=== PATIENT | male | born 1960 | race Caucasian/White ===

== ENCOUNTER 2017-03-02 19:13 | Emergency (ER) | payer BC ==
[2017-03-02 23:02] VITALS: BP 146/82
== END 2017-03-02 23:02 | disposition home or self-care (01) ==
LOC: ED 19:13
DX: N20.0 Calculus of kidney (principal); K80.20 Calculus of gallbladder without cholecystitis without obstruction; Z88.2 Allergy status to sulfonamides

== ENCOUNTER 2017-07-27 00:18 | Emergency (ER) | payer BC ==
[~2017-07-27] VITALS: Ht 182.9 cm; Wt 84.4 kg
[2017-07-27 00:23] VITALS: Ht 182.9 cm; Wt 84.4 kg
[2017-07-27 03:13] VITALS: BP 123/67
== END 2017-07-27 03:14 | disposition home or self-care (01) ==
LOC: ED 00:18
DX: N39.0 Urinary tract infection, site not specified (principal); T83.098A Other mechanical complication of other urinary catheter, initial encounter; Z88.2 Allergy status to sulfonamides